=== PATIENT | female | born 1980 | race Two or more races ===

== ENCOUNTER 2020-08-13 11:21 | Inpatient (IN) | payer OTHER ==
[~2020-08-13] VITALS: Ht 167.6 cm; Wt 70.3 kg
[~2020-08-13 11:21] MED LIST: LEVOTHYROXINE75 MC1; LIDODERM1 EACH TOP
[2020-08-13] MEDS ORDERED: IRON325 MG PO (13:26)
[2020-08-13] MEDS ORDERED: PRENATAL TABLE1 EAC1 PO (13:26)
== END 2020-08-15 14:52 | disposition home or self-care (01) | DRG 807 ==
LOC: OB/GYN → SURG-SUITE 11:21 → LDR 11:21 → OB/GYN 12:57 → SURG-SUITE 21:21
PROVIDERS: ADMIT Obstetrics & Gynecology; ATTEND Obstetrics & Gynecology
PROC: 10E0XZZ Delivery of Products of Conception, External Approach (ICD-10-PCS; principal; 2020-08-13)
PROC: 0HQ9XZZ Repair Perineum Skin, External Approach (ICD-10-PCS; 2020-08-13)
PROC: 4A1HXFZ Monitoring of Products of Conception, Cardiac Rhythm, External Approach (ICD-10-PCS; 2020-08-13)
DX: O70.0 First degree perineal laceration during delivery (principal); O48.0 Post-term pregnancy; Z37.0 Single live birth; Z3A.40 40 weeks gestation of pregnancy; Z20.822 Contact with and (suspected) exposure to COVID-19

== ENCOUNTER 2023-01-23 17:02 | Emergency (ER) | payer OTHER ==
[~2023-01-23] VITALS: Ht 167.6 cm; Wt 59.0 kg
[~2023-01-23 17:02] MED LIST changes: +DEPO-MEDRO40 MG/1 ML IJ; +IRON325 MG PO; +PRENATAL TABLE1 EAC1 PO
[2023-01-23] MEDS ORDERED: LEVOTHYROXINE88 MCG PO (17:38)
== END 2023-01-23 23:20 | disposition home or self-care (01) ==
LOC: ER 17:02
PROVIDERS: Nurse Practitioner Family
DX: O20.8 Other hemorrhage in early pregnancy (principal); Z3A.13 13 weeks gestation of pregnancy; A05.9 Bacterial foodborne intoxication, unspecified; Z20.822 Contact with and (suspected) exposure to COVID-19; E03.8 Other specified hypothyroidism; Z91.018 Allergy to other foods

== ENCOUNTER 2023-06-30 13:45 | Outpatient (CLI) | payer OTHER ==
[~2023-06-30 13:45] MED LIST changes: +LEVOTHYROXINE88 MCG PO
== END 2023-06-30 15:12 | disposition home or self-care (01) ==
LOC: NST 13:45
PROVIDERS: ATTEND Obstetrics & Gynecology Gynecology
DX: Z34.83 Encounter for supervision of other normal pregnancy, third trimester (principal)

== ENCOUNTER 2023-07-16 18:37 | Inpatient (IN) | payer OTHER ==
[~2023-07-16] VITALS: Ht 167.6 cm; Wt 71.2 kg
[2023-07-16] MEDS ORDERED: CHLORHEXIDINE GLUCONATE 120 ML BOTTLE TOP ONE (18:44)
[2023-07-16] MEDS ORDERED: RINGERS SOLUTION,LACTATED 1,000 ML IV SCH (18:45)
[2023-07-16] MEDS ORDERED: ERYTHROMYCIN BASE 1 GM TUBE OP ONE (18:45)
[2023-07-16 19:05] LABS: HEMOGLOBIN 11.7 g/dL (12.0-15.00); MEAN CELL VOLUME 83.2 fL (80.00-100.00); MEAN CORPUSCULAR HEMOGLOBIN 27.9 pg (27.00-32.0); MEAN CORPUSCULAR HGB CONC 33.5 g/dl (32.0-36.0); PLATELET COUNT 223 K/uL (150-450); RED CELL DISTRIBUTION WIDTH 14.6 % (11.5-14.5)
[2023-07-16 19:37] LABS: INR < 0.93; PARTIAL THROMBOPLASTIN TIME 27.9 SECONDS (22.0-34.0); PROTHROMBIN TIME 9.4 SECONDS (9.0-11.5)
[2023-07-16 19:42] LABS: ALBUMIN 2.8 gm/dL (3.4-5.0); BILIRUBIN TOTAL 0.28 mg/dL (0.3-1.2); CREATININE SERUM 0.75 mg/dL (0.55-1.02); GFR 84.34; POTASSIUM 4.09 mEq/L (3.5-5.1); TOTAL PROTEIN 6.8 gm/dL (6.4-8.2)
[2023-07-16] MEDS ORDERED: OxyCODONE HCL/APAP UD (PERCOCET) PO PRN (22:00)
[2023-07-16] MEDS ORDERED: OXYTOCIN 1,000 ML IV SCH (22:00)
[2023-07-16] MEDS ORDERED: KETOROLAC TROMETHAMINE 10 MG TABLET PO PRN (22:00)
[2023-07-16 22:46] LABS: ABG PO2 44.8 mmHg (80-100); BASE EXCESS -1.3 mmol/l; BICARBONATE 22.9 mmol/l (23-25); SaO2 80.9 %; o2 21 %
[2023-07-18] MEDS ORDERED: LEVOTHYROXINE SODIUM 88 MCG TABLET PO SCH (09:00)
== END 2023-07-18 11:19 | disposition home or self-care (01) | DRG 807 ==
LOC: LDR 18:37 → OB/GYN 18:37
PROVIDERS: Obstetrics & Gynecology Maternal & Fetal Medicine; ADMIT Obstetrics & Gynecology Gynecology; ATTEND Obstetrics & Gynecology Gynecology
PROC: 10E0XZZ Delivery of Products of Conception, External Approach (ICD-10-PCS; principal; 2023-07-16)
PROC: 0KQM0ZZ Repair Perineum Muscle, Open Approach (ICD-10-PCS; 2023-07-16)
PROC: 4A1HXCZ Monitoring of Products of Conception, Cardiac Rate, External Approach (ICD-10-PCS; 2023-07-16)
DX: O70.1 Second degree perineal laceration during delivery (principal); Z37.0 Single live birth; Z3A.38 38 weeks gestation of pregnancy; Z20.822 Contact with and (suspected) exposure to COVID-19